=== PATIENT | female | born 1995 | race Caucasian/White ===

== ENCOUNTER 2021-08-14 18:07 | Emergency (ER) | payer BC, MEDICAID, SELFPAY ==
[2021-08-14] VITALS (21 sets, daily range): BP systolic 105–134; BP diastolic 51–91; PULSE 64–92; RESP 9–23; TEMP 36.6; O2SAT 99–100
--- NOTE | ~2021-08-14 | XR_ITS ---
EXAMINATION: XR chest 1V portable INDICATION: Chest pain, COVID 19 TECHNIQUE: Portable AP chest at 1835 hours COMPARISON: None available FINDINGS: There are subtle patchy interstitial and airspace opacities throughout the lungs. No pleura l effusion or pneumothorax is identified. The cardiomediastinal silhouette is normal. The visualized osseous structures are unremarkable. IMPRESSION: 1. Subtle diffuse lung disease, consistent with pneumonia versus pulmonary edema. Reviewed, dictated and finalized at location [facility] IMPRESSION: 1. Subtle diffuse lung disease, consistent with pneumonia versus pulmonary aura a.
--- NOTE | 2021-08-14 18:10 | ECG_ITS ---
Measurements Intervals [place] Rate: 81 P: 42 WI: 146 QRS: 39 QRSD: 97 T: 37 QT: 371 QTc: 433 Interpretive Statements SINUS RHYTHM MINIMAL Q WAVES- INF/LAT LEADS NONSPECIFIC T-WAVE ABNORMALITY- ANTERIOR LEADS BASELINE ARTIFACT- I, II, AVR, AVL, AVF, V3, V6 BORDERLINE ECG Electronically Signed On 08-14-2021 20:06:52 LOCAL GOVERNMENT LEGISLATOR by Hugo Beltran D.O.
[2021-08-14 18:42] LABS: Basophils Percent Auto 0.3 % (0.2-1.2); Eosinophils Absolute Auto 0.1 K/mm3 (0-0.3); Eosinophils Percent Auto 0.7 % (0-4.4); Hematocrit 40.5 % (37.0-47.0); Hemoglobin 13.6 g/dL (12.0-15.0); Immature Granulocyte Absolute 0.02 K/mm3 (0.00-0.031); Immature Granulocyte Percent A 0.2 % (0-0.5); Lymphocytes Absolute Auto 1.72 K/mm3 (0.9-3.2); Lymphocytes Percent Auto 19.1 % (18.3-44.2); Mean Corpuscular HGB Conc 33.6 g/dl (32-36); Mean Corpuscular Volume 89.2 fl (80-100); Mean Platelet Volume 8.7 fl (7.4-10.4); Monocytes Absolute Auto 0.4 K/mm3 (0.1-0.6); Monocytes Percent Auto 4.8 % (2.6-8.5); Neutrophils Absolute Auto 6.8 K/mm3 (1.3-6.7); Neutrophils Percent Auto 74.9 % (45.5-73.1); Platelet Count Result 350 k/mm3 (150-375); Red Blood Count 4.54 M/mm3 (4.2-5.4); Red Cell Distribution Width 11.4 % (11.5-14.5)
[2021-08-14 18:46] LABS: Alanine Aminotransferase 17 U/L (4-35); Albumin Level 4.4 g/dL (3.5-5.1); Alkaline Phosphatase 84 U/L (38-126); Anion Gap 8 mmol/L (8-16); Aspartate Amino Transferase 24 U/L (14-36); Bilirubin,Total 0.5 mg/dL (0.2-1.3); Blood Urea Nitrogen 10 mg/dL (7-17); Carbon Dioxide 26 mmol/L (22-30); Chloride 106 mmol/L (98-107); Estimated CRCL calculation 75 ml/min; Estimated Glomerular Filt Rate > 60; Glucose 99 mg/dL (65-110); INR 1.1; Lipase 51 U/L (23-300); Potassium 3.8 mmol/L (3.4-5.0); Prothrombin Time 13.7 Seconds (11.1-14.7); Sodium 140 mmol/L (137-145)
[2021-08-14 18:47] LABS: Partial Thromboplastin Time 29.2 SECONDS (22.3-36.8)
[2021-08-14 18:58] LABS: Troponin I < 0.012 ng/mL (0.000-0.034)
--- NOTE | 2021-08-14 20:01 | ED.CHESTPAIN ---
HPI - Chest Pain General Chief Complaint: Chest Pain <Rickie Sultana MD - Last Filed: 08/15/21 11:05> Stated Complaint: COVID/chest pain <Rickie Sultana MD - Last Filed: 08/15/21 11:05> Time Seen by Provider: 08/14/21 19:12 <Rickie Sultana MD - Last Filed: 08/15/21 11:05> History of Present Illness HPI narrative: 26-year-old female with history of myocarditis and intermittent SVT presents emerged department for complaint of left-sided chest pain. Approximately 3 weeks ago. Patient states that she did have a few weeks where she was doing poorly but felt like she was improving. Patient notes that she has had intermittent periods with a rapid heart rate and her physician felt that she was probably having increased episodes of SVT. They were going to do an outpatient work-up to determine if she had any evidence of myocarditis. [place] patient [place] and had onset of left-sided chest pain with rapid heart rate. Patient states that a rapid heart rate did not last very long but she was still having the intermittent left chest pain. Patient denies any associated shortness of breath. Patient denies any prior history of PE or DVT. <Rickie Sultana MD - Last Filed: 08/15/21 11:05> Related Data Home Medications: Home Medications Medication Instructions Recorded Confirmed atenolol 25 mg PO DAILY 08/14/21 08/14/21 <Rickie Sultana MD - Last Filed: 08/15/21 11:05> Allergies/Adverse Reactions: Allergies Allergy/AdvReac Type Severity Reaction Status Date / Time No Known Allergies Allergy Verified 08/14/21 19:09 <Rickie Sultana MD - Last Filed: 08/15/21 11:05> Review of Systems Review of Systems: CONSTITUTIONAL: Denies fever, chills, or sweats. EYES: Denies visual changes, redness, or discharge. ENT: Denies rhinorrhea, congestion, sore throat, or otalgia. CARDIOVASCULAR: Left-sided chest pains with intermittent palpitations RESPIRATORY: Denies cough or dyspnea. GASTROINTESTINAL: Denies abdominal pain, nausea, vomiting, or diarrhea. GENITOURINARY: Denies dysuria or hematuria. SKIN: Denies rash or itching. MUSCULOSKELETAL: Denies back pain, joint pain, or myalgia. NEUROLOGIC: Denies headache, numbness, or weakness. PSYCHIATRIC: Denies anxiety or depression. <Rickie Sultana MD - Last Filed: 08/15/21 11:05> Exam Narrative: APPEARANCE: Well appearing, no pain in distress, well-nourished. HEAD: normocephalic, atraumatic. EYES: PERRLA/EOMI, conjunctivae clear. RESPIRATORY: Airway patent, respirations nonlabored. Clear to auscultation bilaterally, no rales, rhonchi, wheezing. CARDIOVASCULAR: Regular rate and rhythm without murmurs rubs or gallops. ABDOMINAL: Soft, nontender, nondistended, normal bowel sounds MUSCULOSKELETAL: Moves all extremities. Strength/ROM intact, No edema, No calf tenderness. NEURO: Alert. Cranial nerves II through XII intact. Good gait. Good coordination SKIN: Warm, dry. Normal Color PSYCHIATRIC: Normal affect/mood. <Rickie Sultana MD - Last Filed: 08/15/21 11:05> Course Course Emergency Course: Upon arrival to emergency room patient is in a normal sinus rhythm. Patient's EKG is normal sinus with nonspecific ST changes. No evidence of myocarditis pericarditis. Patient's initial troponin was not elevated. Patient's D-dimer is also not elevated. Plan at signout is to do serial troponins. If patient's troponins are negative then patient can be discharged home with azithromycin. Patient was updated on this plan. All questions and concerns were addressed. <Rickie Sultana MD - Last Filed: 08/15/21 11:05> Vital Signs Vital signs: Vital Signs Temperature 97.9 F 08/14/21 18:09 Pulse Rate 92 08/14/21 18:09 Respiratory Rate 14 08/14/21 18:09 Blood Pressure 134/91 H 08/14/21 18:09 Pulse Oximetry 100 08/14/21 18:09 Temperature 97.9 F 08/14/21 18:09 Pulse Rate 67 08/14/21 22:19 Respiratory Rate 14
[2021-08-14 21:35] LABS: Troponin I < 0.012 ng/mL (0.000-0.034)
== END 2021-08-14 22:25 | disposition home or self-care (01) ==
PROVIDERS: Emergency Provider Emergency Medicine
DX: J18.9 Pneumonia, unspecified organism (principal); R07.9 Chest pain, unspecified
CPT/HCPCS: 36415; 71045; 80053; 83690; 84484; 85025; 85380; 85610; 85730; 93005; 99284